=== PATIENT | female | born 1985 | race Caucasian/White ===

== ENCOUNTER 2025-03-29 09:40 | Outpatient (AMB) | payer MEDICAID, SELFPAY ==
[2025-03-29 09:56] VITALS: BP 115/79; PULSE 74; RESP 17; TEMP 36.8; O2SAT 97; BMI 22.8
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
== END 2025-03-29 10:28 | disposition home or self-care (01) ==
PROVIDERS: PCP Family Medicine; Referring Provider Family Medicine; Supervising Provider Advanced Practice Midwife; Visit Provider Advanced Practice Midwife
DX: O09.521 Supervision of elderly multigravida, first trimester (principal); Z3A.00 Weeks of gestation of pregnancy not specified; Z71.6 Tobacco abuse counseling; O09.891 Supervision of other high risk pregnancies, first trimester; F17.210 Nicotine dependence, cigarettes, uncomplicated
CPT/HCPCS: 99203; G0463

== ENCOUNTER 2025-04-26 10:28 | Outpatient (AMB) | payer MEDICAID, SELFPAY ==
[2025-04-26 10:35] VITALS: BP 110/70; PULSE 85; RESP 17; TEMP 36.8; O2SAT 96; BMI 22.0
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
== END 2025-04-26 11:07 | disposition home or self-care (01) ==
LOC: HODSOBC 10:28
PROVIDERS: PCP Family Medicine; Referring Provider Family Medicine; Supervising Provider Advanced Practice Midwife; Visit Provider Advanced Practice Midwife
DX: O09.522 Supervision of elderly multigravida, second trimester (principal); Z3A.17 17 weeks gestation of pregnancy; O09.892 Supervision of other high risk pregnancies, second trimester; O99.332 Smoking (tobacco) complicating pregnancy, second trimester; Z71.6 Tobacco abuse counseling; F17.210 Nicotine dependence, cigarettes, uncomplicated; Z67.41 Type O blood, Rh negative
CPT/HCPCS: 99214; G0463

== ENCOUNTER 2025-05-24 10:33 | Outpatient (AMB) | payer MEDICAID, SELFPAY ==
[2025-05-24 10:39] VITALS: BP 109/94; PULSE 97; RESP 17; TEMP 36.9; O2SAT 97; BMI 22.0
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
== END 2025-05-24 11:12 | disposition home or self-care (01) ==
LOC: HODSOBC 10:33
PROVIDERS: PCP Advanced Practice Midwife; Referring Provider Advanced Practice Midwife; Supervising Provider Advanced Practice Midwife; Visit Provider Advanced Practice Midwife
DX: O09.892 Supervision of other high risk pregnancies, second trimester (principal); Z3A.21 21 weeks gestation of pregnancy; O09.522 Supervision of elderly multigravida, second trimester; O99.332 Smoking (tobacco) complicating pregnancy, second trimester; F17.210 Nicotine dependence, cigarettes, uncomplicated; Z71.6 Tobacco abuse counseling
CPT/HCPCS: 99214; G0463

== ENCOUNTER 2025-08-14 09:31 | Outpatient (AMB) | payer MEDICAID, SELFPAY ==
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
[2025-08-14 09:41] VITALS: BP 111/66; PULSE 85; RESP 18; TEMP 36.4; O2SAT 97; BMI 23.1
== END 2025-08-14 10:11 | disposition home or self-care (01) ==
LOC: HODSOBC 09:31
PROVIDERS: Supervising Provider Advanced Practice Midwife; Visit Provider Advanced Practice Midwife
DX: O09.893 Supervision of other high risk pregnancies, third trimester (principal); O99.333 Smoking (tobacco) complicating pregnancy, third trimester; O26.893 Other specified pregnancy related conditions, third trimester; Z67.41 Type O blood, Rh negative; O09.513 Supervision of elderly primigravida, third trimester; F17.210 Nicotine dependence, cigarettes, uncomplicated; Z71.6 Tobacco abuse counseling; Z3A.28 28 weeks gestation of pregnancy
CPT/HCPCS: 96372; 99214; G0463

== ENCOUNTER 2025-10-02 10:29 | Outpatient (AMB) | payer MEDICAID, SELFPAY ==
[2025-10-02 10:42] VITALS: BP 111/73; PULSE 84; RESP 16; TEMP 36.6; O2SAT 98; BMI 22.5
--- NOTE | 2025-10-02 10:42 | OBCLNT_ITS ---
Vital Signs 10/02/25 10:42 Height 1.68 m Height Method Stated Weight 63.503 kg Weight Measurement Method Standing Scale BMI 22.5 BP 111/73 Blood Pressure Source Automatic Cuff Blood Pressure Location Left Upper Arm Position Sitting Respiration 16 Pulse 84 Pulse Source Monitor Temp 97.8 F Temp Source Oral Pulse Oximetry (%) 98 Oxygen Delivery Method Room Air Allergies/Home Meds Allergies & Medications Allergies No Known Allergies Allergy (Verified 10/02/25 10:43) Medication Reconciliation ferrous sulfate 325 mg (65 mg iron) tablet 325 mg PO BID #60 tabs 03/29/25 [Rx Confirmed 10/02/25] vitamin-ferrous fumarate 28 mg iron-folic acid 800 mcg tablet ( Vitamins with Minerals) 1 tab PO QDAY #60 tabs 03/29/25 [Rx Confirmed 10/02/25] aspirin 81 mg tablet,delayed release (Adult Aspirin Regimen) 81 mg PO QDAY #60 tabs 05/24/25 [Rx Confirmed 10/02/25] Immunizations Immunizations Flu Vaccine in the Last 12 Months: No Flu Vaccine Exclusion Criteria: Refused by Patient Care OB Visit Log OB Flowsheet Initial Weight: Not Recorded Date -?-?-?-?-?-?-?-?-?-?-?-?- EGA Weight BP Alb Glu CTX Pres Fundal ht FHR Mov Dilation Station Effacement Hx Notes Visit Note 04/26/25 -?-?-?-?-?-?-?-?-?-?-?-?- 13w 0d 62.142 kg 110/70 absent unknown 17 145 absent No OB complaints. Denies leaking or bleeding. No cramping. MFM appointment in May 28, 2025. Patient needs a note for verification. verification today. Keep appointment for May 28 for anatomy scan. I discussed NIPT with patient today discussed lab results. Patient needs RhoGAM at 28 weeks. aFP today. Return in 4 weeks OB check 05/24/25 -?-?-?-?-?-?-?-?-?-?-?-?- 17w 0d 62.142 kg 109/94 absent unknown 21 145 active doing well, no oB complaints, denies leaking,bleeding and UC f/u mfm for 05/28. dental clearnce today. . discuss ptl precaution. work on decreased cigarrett use. rtc 4 week 06/21/25 -?-?-?-?-?-?-?-?-?-?-?-?- 21w 0d 61.859 kg 111/67 absent unknown 20 135 active Patient is working to stop smoking. Reports good movement. Denies labor complaints. Denies leaking, denies bleeding, patient has a follow-up ultrasound in July 10. Discussed dates. EDC based on 17-week ultrasound done May 28, 2025 corrected EDC to November 01, 2025. Patient has a follow-up on July 10. Continue prenatals. Discussed AFP. Return in 4 weeks OB check 07/17/25 -?-?-?-?-?-?-?-?-?-?-?-?- 24w 5d 63.276 kg 114/69 absent unknown 24 135 active No OB complaints. Patient continues to work on decreasing her smoking. Fetus is active. Denies leaking, bleeding, contractions. Patient has a follow-up ultrasound in September Third trimester labs today with type Rh and antibody screen. RhoGAM next visit. Discussed diet and exercise. Increase fluids. labor precautions. Return in 4 weeks OB check 08/14/25 -?-?-?-?-?-?-?-?-?-?-?-?- 28w 5d 65.091 kg 111/66 absent unknown 27 135 active Denies OB complaints today. Reports good movement. Denies leaking, contractions. Or bleeding. Third trimester labs discussed as normal. Discussed labor precautions. Continue to work on decreasing the number of cigarettes smoked. Increase fluids. Keep scheduled maternal- medicine referral and return in 3 weeks OB check 10/02/25 -?-?-?-?-?-?-?-?-?-?-?-?- 35w 5d 63.503 kg 111/73 absent cephalic 35 135 active Working on slowing down smoking. Reports good movement. Denies leaking, bleeding, contractions GBS today. Disc ussed kick count parameters. Discussed labor precautions. Increase fluids. Continue prenatals. Return in a week OB check SISI Calculator Estimated Delivery Date Method Current WG Current Estimate 11/01/25 Ultrasound #1 35w 5d Other Estimates 10/04/25 LMP (Certain) 39w 5d 11/01/25 Ultrasound #2 35w 5d 11/01/25 Manual 35w 5d final sisi , EFW 53% Notes Visit Date: 10/02/25 Last Updated by: Giulia Quinones CNM sono: 09/25/25: normal LAURY.no previa, 34w5,31% Visit Date: 08/14/25 Last Updated by: Giulia Quinones CNM 08/08> 3rd tri labs wnl Visit Date: 06/21/25 Last Updated by: Giulia Quinones CNM wrong dates. MFM sono: 05/28/25: IUP 17w4. CEDC: 11/01/25/final edc Visit Date: 05/24/25 Last Updated by: Giulia Quinones CNM 05/24/25: AFP- Visit Date: 04/26/25 Last Updated by: Giulia Quinones CNM 04/26/25: Patient is RH-/Needs Rhogam at 28 week, O-,abs-, rpr;;nr, rub imm, hbsag-, hiv-, HC-, GC/CT-, UT-, /309. NIPT-/female, carrier screen - Office Procedures OBC Clinic LOC & Office Proc's Nursing/Assessment Patient Status: Established Patient OB Clinic Nursing Assessment: Medication Reconciliation, Update PMH in EMR and Vital Signs OB Clinic Coordination of Care: AMA, Complex Care and Chronic Disease 1-5, Consent,records obtained, informed consent, Education Simp Pt/Fam, 1 Ins Authorization, Lab and Imaging orders, Results/Orders obtained and Staff clarify orders Special Needs: Heart tones Miscellaneous Interventions: Culture Specimen Collection Established Patient Charge Established Patient Point Assignment: 185 Established Patient Point Charge: EP Level 5 (160-above) Assessment & Plan Diagnosis / Problem List (1) Encounter for supervision of high risk in third trimester, antepartum: Status: Acute (2) Advanced maternal age (AMA) in : Status: Acute Plan GBS today. Discussed labor precautions. Kick count twice a day with parameters. Continue prenatals. Return week OB check Additional Plan Follow Up: 1 Week (obc)
== END 2025-10-02 11:11 | disposition home or self-care (01) ==
LOC: HODSOBC 10:29
PROVIDERS: Supervising Provider Advanced Practice Midwife; Visit Provider Advanced Practice Midwife
DX: O09.523 Supervision of elderly multigravida, third trimester (principal); Z3A.35 35 weeks gestation of pregnancy; Z36.85 Encounter for antenatal screening for Streptococcus B; Z28.21 Immunization not carried out because of patient refusal
CPT/HCPCS: 99215; G0463

== ENCOUNTER 2025-10-16 13:03 | Outpatient (AMB) | payer MEDICAID, SELFPAY ==
[2025-10-16 13:28] VITALS: BP 126/80; PULSE 97; RESP 18; TEMP 36.2; O2SAT 98; BMI 22.7
--- NOTE | 2025-10-16 13:28 | OBCLNT_ITS ---
Vital Signs 10/16/25 13:28 Height 1.68 m Height Method Stated Weight 64.127 kg Weight Measurement Method Standing Scale BMI 22.7 BP 126/80 Blood Pressure Source Automatic Cuff Blood Pressure Location Left Upper Arm Position Standing Respiration 18 Pulse 97 Pulse Source Monitor Temp 97.2 F Temp Source Oral Pulse Oximetry (%) 98 Oxygen Delivery Method Room Air Allergies/Home Meds Allergies & Medications Allergies No Known Allergies Allergy (Verified 10/16/25 13:29) Medication Reconciliation ferrous sulfate 325 mg (65 mg iron) tablet 325 mg PO BID #60 tabs 03/29/25 [Rx Confirmed 10/16/25] vitamin-ferrous fumarate 28 mg iron-folic acid 800 mcg tablet ( Vitamins with Minerals) 1 tab PO QDAY #60 tabs 03/29/25 [Rx Confirmed 10/16/25] aspirin 81 mg tablet,delayed release (Adult Aspirin Regimen) 81 mg PO QDAY #60 tabs 05/24/25 [Rx Confirmed 10/16/25] Immunizations Immunizations Flu Vaccine in the Last 12 Months: No Flu Vaccine Exclusion Criteria: Refused by Patient and No Exclusion Criteria Care OB Visit Log OB Flowsheet Initial Weight: Not Recorded Date -?-?-?-?-?-?-?-?-?-?-?-?- EGA Weight BP Alb Glu CTX Pres Fundal ht FHR Mov Dilation Station Effacement Hx Notes Visit Note 04/26/25 -?-?-?-?-?-?-?-?-?-?-?-?- 13w 0d 62.142 kg 110/70 absent unknown 17 145 absent No OB complaints. Denies leaking or bleeding. No cramping. MFM appointment in May 28, 2025. Patient needs a note for verification. verification today. Keep appointment for May 28 for anatomy scan. I discussed NIPT with patient today discussed lab results. Patient needs RhoGAM at 28 weeks. aFP today. Return in 4 weeks OB check 05/24/25 -?-?-?-?-?-?-?-?-?-?-?-?- 17w 0d 62.142 kg 109/94 absent unknown 21 145 active doing well, no oB complaints, denies leaking,bleeding and UC f/u mfm for 05/28. dental clearnce today. . discuss ptl precaution. work on decreased cigarrett use. rtc 4 week 06/21/25 -?-?-?-?-?-?-?-?-?-?-?-?- 21w 0d 61.859 kg 111/67 absent unknown 20 135 active Patient is working to stop smoking. Reports good movement. Denies labor complaints. Denies leaking, denies bleeding, patient has a follow-up ultrasound in July 10. Discussed dates. EDC based on 17-week ultrasound done May 28, 2025 corrected EDC to November 01, 2025. Patient has a follow-up on July 10. Continue prenatals. Discussed AFP. Return in 4 weeks OB check 07/17/25 -?-?-?-?-?-?-?-?-?-?-?-?- 24w 5d 63.276 kg 114/69 absent unknown 24 135 active No OB complaints. Patient continues to work on decreasing her smoking. Fetus is active. Denies leaking, bleeding, contractions. Patient has a follow-up ultrasound in September Third trimester labs today with type Rh and antibody screen. RhoGAM next visit. Discussed diet and exercise. Increase fluids. labor precautions. Return in 4 weeks OB check 08/14/25 -?-?-?-?-?-?-?-?--?-?-?-?- 28w 5d 65.091 kg 111/66 absent unknown 27 135 active Denies OB complaints today. Reports good movement. Denies leaking, contractions. Or bleeding. Third trimester labs discussed as normal. Discussed labor precautions. Continue to work on decreasing the number of cigarettes smoked. Increase fluids. Keep scheduled maternal- medicine referral and return in 3 weeks OB check 10/02/25 -?-?-?-?-?-?-?-?-?-?-?-?- 35w 5d 63.503 kg 111/73 absent cephalic 35 135 active Working on slowing down smoking. Reports good movement. Denies leaking, bleeding, contractions GBS today. Disc ussed kick count parameters. Discussed labor precautions. Increase fluids. Continue prenatals. Return in a week OB check 10/16/25 -?-?-?-?-?-?-?-?-?-?-?-?- 37w 5d 64.127 kg 126/80 occasional cephalic 37 156 active Continue to decrease smoking cigarettes. Fetus is active. Denies leaking or bleeding. Occasional contraction. Reviewed negative GBS. Kick count twice a day. Continue to work on decrease smoking. Discussed danger signs symptoms and return in a week for OB check SISI Calculator Estimated Delivery Date Method Current WG Current Estimate 11/01/25 Ultrasound #1 37w 5d Other Estimates 10/04/25 LMP (Certain) 41w 5d 11/01/25 Ultrasound #2 37w 5d 11/01/25 Manual 37w 5d final sisi , EFW 53% Notes Visit Date: 10/16/25 Last Updated by: Giulia Quinones CNM GBS- Visit Date: 10/02/25 Last Updated by: Giulia Quinones CNM sono: 09/25/25: normal LAURY.no previa, 34w5,31% Visit Date: 08/14/25 Last Updated by: Giulia Quinones CNM 08/08> 3rd tri labs wnl Visit Date: 06/21/25 Last Updated by: Giulia Quinones CNM wrong dates. MFM sono: 05/28/25: IUP 17w4. CEDC: 11/01/25/final edc Visit Date: 05/24/25 Last Updated by: Giulia Quinones CNM 05/24/25: AFP- Visit Date: 04/26/25 Last Updated by: Giulia Quinones CNM 04/26/25: Patient is RH-/Needs Rhogam at 28 week, O-,abs-, rpr;;nr, rub imm, hbsag-, hiv-, HC-, GC/CT-, UT-, //309. NIPT-/female, carrier screen - Office Procedures OBC Clinic LOC & Office Proc's Nursing/Assessment Patient Status: Established Patient OB Clinic Nursing Assessment: Medication Reconciliation, Update PMH in EMR and Vital Signs OB Clinic Coordination of Care: Complex Care and Chronic Disease 1-5, Consent,records obtained, informed consent, Education Simp Pt/Fam, Lab and Imaging orders, Results/Orders obtained and Staff clarify orders Special Needs: Heart tones Established Patient Charge Established Patient Point Assignment: 135 Established Patient Point Charge: EP Level 4 (120-155) Assessment & Plan Diagnosis / Problem List (1) Encounter for supervision of high risk in third trimester, antepartum: Status: Acute (2) Advanced maternal age (AMA) in : Status: Acute Plan Discussed labor precautions. Kick count twice a day. Discussed danger signs symptoms and ER precautions and I reinforced the importance of going to labor and delivery for leaking water return in a week for OB check Additional Plan Follow Up: 1 Week (obc)
== END 2025-10-16 13:50 | disposition home or self-care (01) ==
LOC: HODSOBC 13:03
PROVIDERS: Supervising Provider Advanced Practice Midwife; Visit Provider Advanced Practice Midwife
DX: O09.523 Supervision of elderly multigravida, third trimester (principal); O09.893 Supervision of other high risk pregnancies, third trimester; O99.333 Smoking (tobacco) complicating pregnancy, third trimester; F17.210 Nicotine dependence, cigarettes, uncomplicated; Z3A.37 37 weeks gestation of pregnancy; Z28.21 Immunization not carried out because of patient refusal
CPT/HCPCS: 99214; G0463